=== PATIENT | male | born 1970 | race Caucasian/White ===

== ENCOUNTER → 2021-06-01 11:56 | Outpatient (CLI) | payer OTHER, SELFPAY ==
[2021-06-01 12:52] LABS: Influenza A, PCR Not Detected (NotDetected); Influenza B, PCR Not Detected (NotDetected)
[2021-06-01 14:02] LABS: Coronavirus 19, PCR Detected (NotDetected)
== END ==
PROVIDERS: PCP Internal Medicine; Visit Provider Internal Medicine
DX: U07.1 COVID-19 (principal)
CPT/HCPCS: C9803; U0003; U0005